=== PATIENT | female | born 1965 | race Caucasian/White ===

== ENCOUNTER 2018-10-29 17:46 | Emergency (ER) | payer OTHER ==
[~2018-10-29] VITALS: Ht 172.7 cm; Wt 59.0 kg
[2018-10-29 17:54] VITALS: BP 129/87
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
[2018-10-29] MEDS ORDERED: MUPIROCIN22 GM TOPIC (18:27)
[2018-10-29] MEDS ORDERED: Tetanus/Diptheria/Pertussis IM ONE (18:30)
[2018-10-29 18:34] VITALS: BP 129/87
--- NOTE | 2018-10-29 18:34 | NUR ---
ER DISCHARGE NOTE: Patient is cleared to be discharged per ERMD, pt is aox4, on room air, with stable vital signs. pt was given dc and prescription instructions, pt was able to verbalize understanding, pt id band removed. pt is able to ambulate with steady gait. pt took all belongings.
== END 2018-10-29 20:29 | disposition home or self-care (01) ==
LOC: EMR 20:29
DX: S50.812A Abrasion of left forearm, initial encounter (principal); Y04.8XXA Assault by other bodily force, initial encounter; Z23 Encounter for immunization
CPT/HCPCS: 90471; 90715; 99282